=== PATIENT | male | born 1995 | race Caucasian/White ===

== ENCOUNTER 2017-02-01 13:06 | Emergency (ER) | payer OTHER ==
[~2017-02-01] VITALS: Ht 177.8 cm; Wt 83.0 kg
[~2017-02-01 13:06] MED LIST: MOTR200T4 PO
[2017-02-01 13:11] VITALS: BP 148/102; PULSE 98; RESP 16; TEMP 98.1; O2SAT 100
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
[2017-02-01] MEDS ORDERED: IBUP-232 PO (15:05)
[2017-02-01] MEDS ORDERED: ORPH100T99 PO (15:05)
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
== END 2017-02-01 15:35 | disposition home or self-care (01) ==
LOC: PHEFT 13:06
DX: S62.312A Displaced fracture of base of third metacarpal bone, right hand, initial encounter for closed fracture (principal); S40.012A Contusion of left shoulder, initial encounter; M25.531 Pain in right wrist; R07.81 Pleurodynia; V29.9XXA Motorcycle rider (driver) (passenger) injured in unspecified traffic accident, initial encounter
CPT/HCPCS: 29125; 71101; 72125; 73030; 73110

== ENCOUNTER 2017-04-18 18:03 | Emergency (ER) | payer OTHER ==
[~2017-04-18] VITALS: Ht 177.8 cm; Wt 84.3 kg
[~2017-04-18 18:03] MED LIST changes: +IBUP-232 PO; -MOTR200T4 PO; +ORPH100T99 PO
[2017-04-18 18:05] VITALS: BP 125/84; PULSE 79; RESP 18; TEMP 98.4; O2SAT 100
[2017-04-18] MEDS ORDERED: BACT800T5 PO (18:56)
[2017-04-18] MEDS ORDERED: HYDR-3533 PO (18:56)
[2017-04-18] MEDS ORDERED: LIDOCAINE 1%/EPINEPHrine 1:100,000 SOLN 30 ML VIAL ONE (18:57)
[2017-04-18] MEDS ORDERED: LIDOCAINE 1%/EPINEPHrine 1:100,000 SOLN 20 ML VIAL INFIL ONE ×2 (19:00→20:00)
--- NOTE | 2017-04-18 19:02 | PD ---
HPI Chief Complaint: Skin Problem Time Seen by Provider: 18:57 Travel History International Travel<30 days: No Contact w/Intl Traveler<30days: No Traveled to known affect area: No History of Present Illness HPI 22-year-old male that presents to the ED for evaluation of abscess to the buttocks. Patient has had this before. Per patient he had to have it incised before. Per patient his been bothering him for about 2 weeks now. Per patient is not really draining. Per patient's painful to sit. He denies any injuries or trauma. Denies any fevers chills or sweats. Per patient pain is 8 out of 10 especially when he sits on it. He has no allergies to medication. Denies any fevers chills or sweats. PFSH Past Medical History Medical History: Denies Significant Hx Diminished Hearing: No Influenza Vaccination: No Past Surgical History Tonsillectomy: Yes Social History Alcohol Use: Yes (COUPLE TIMES A WEEK) Tobacco Use: No Substance Use: No Allergies-Medications (Allergen,Severity, Reaction): Coded Allergies: No Known Allergies (Unverified , 04/18/17) Reported Meds & Prescriptions Reported Meds & Active Scripts Active Lortab (Hydrocodone-Acetaminophen) 5-325 Mg Tab 1 Tab PO Q6H PRN Bactrim DS (Sulfamethoxazole-Trimethoprim) 800-160 Mg Tab 1 Tab PO BID 10 Days Review of Systems Except as stated in HPI: all other systems reviewed are Neg Physical Exam Narrative GENERAL: SKIN: Warm and dry. Patient has a 1 cm in diameter pilonydal cyst on the gluteal cleft. No sign of other deformity. Mobile and tender. Erythematous but no drainage. Patient does have a scar from previous drainage in that same area. HEAD: Atraumatic. Normocephalic. EYES: Pupils equal and round. No scleral icterus. No injection or drainage. ENT: No nasal bleeding or discharge. Mucous membranes pink and moist. Tongue is midline. No uvula deviation. NECK: Trachea midline. No JVD. CARDIOVASCULAR: Regular rate and rhythm. RESPIRATORY: No accessory muscle use. Clear to auscultation. Breath sounds equal bilaterally. GASTROINTESTINAL: Abdomen soft, non-tender, nondistended. Hepatic and splenic margins not palpable. MUSCULOSKELETAL: Extremities without clubbing, cyanosis, or edema. No obvious deformities. Full range of motion of the upper and lower extremities bilaterally. 2+ pulses bilaterally. NEUROLOGICAL: Awake and alert. No obvious cranial nerve deficits. Motor grossly within normal limits. Five out of 5 muscle strength in the arms and legs. Normal speech. PSYCHIATRIC: Appropriate mood and affect; insight and judgment normal. Data Data Last Documented VS Vital Signs Date Time Temp Pulse Resp B/P Pulse Ox O2 Delivery O2 Flow Rate FiO2 04/18/17 18:05 98.4 79 18 125/84 100 Orders Wound Culture And Gram Stain (04/18/17 18:54) Wound Care (04/18/17 18:54) Lidocai-Epi 1%-1:100,000 Inj (Xylocaine- (04/18/17 19:00) MDM Medical Decision Making Medical Screen Exam Complete: Yes Emergency Medical Condition: Yes Medical Record Reviewed: Yes Differential Diagnosis Pilonidal cyst versus abscess versus normal exam Narrative Course 22-year-old male that presents to the ED for evaluation of altered mental status. Patient was properly examined and was found to have signs and symptoms consistent with bilateral cysts. After explained procedure to the patient and she agreed to it abscesses was incessant during his stay in procedure note. Patient was given prescription for Bactrim and Lortab for pain. Patient was told to apply warm compresses. I strongly encouraged the patient to follow with a general surgeon to get the cyst removed so he doesn't have this again at this is his second time with the same complaint. He agrees understanding of this plan. Follow with PCP. See ED worsening symptoms. Procedures Procedure Narrative After the risks and benefits were discussed the following procedure was performed: INCISION AND DRAINAGE OF ABSCESS: The area was prepped and was sterilely draped. A subcutaneous wheal of 1 % Xylocaine with a total number 5 mL was used to anesthetize the area. The area was properly anesthetized. A number 11 scalpel was used to make a 0.5 -cm incision across the area of the abscess. Cultures were obtained. The abscess was drained an irrigated with normal saline. Quarter inch iodoform packing was placed in the wound. Sterile dressing applied. Patient advised to have packing removed in two days. Diagnosis Primary Impression: Pilonidal cyst with abscess Patient Instructions: General Instructions Additional Instructions: Take medications as prescribed. Follow-up with PCP and general surgeon to get the cyst removed to prevent this from ever happening again. See ED for any worsening symptoms. Do not drink or drive while taking pain medication. Apply ice or heat as needed for pain Change dressings daily. Med/Other Pt SpecificInfo: Prescription(s) given Scripts Hydrocodone-Acetaminophen (Lortab)5-325 Mg Tab1 Tab PO Q6H PRN (PAIN) #12 TAB Prov:Genoveva Nichols MD 04/18/17 Sulfamethoxazole-Trimethoprim (Bactrim DS)800-160 Mg Tab1 Tab PO BID 10 Days Prov:Genoveva Nichols MD 04/18/17 Disposition: 01 DISCHARGE HOME Condition: Stable Real Monge Apr 18, 2017 19:02
== END 2017-04-18 19:58 | disposition home or self-care (01) ==
LOC: PHED 18:03 → PHEFT 19:58
DX: L05.01 Pilonidal cyst with abscess (principal)
CPT/HCPCS: 10061; 87070; 87205

== ENCOUNTER 2017-05-18 10:08 | Emergency (ER) | payer OTHER ==
[~2017-05-18] VITALS: Ht 177.8 cm; Wt 80.0 kg
[~2017-05-18 10:08] MED LIST changes: +BACT800T5 PO; +HYDR-3533 PO; -IBUP-232 PO; -ORPH100T99 PO
[2017-05-18 10:09] VITALS: BP 143/92; PULSE 73; RESP 18; TEMP 98.5; O2SAT 100
[2017-05-18] MEDS ORDERED: LIDOCAINE 1%/EPINEPHrine 1:100,000 SOLN 50 ML VIAL INFIL ONE (10:30)
[2017-05-18] MEDS ORDERED: TETANUS/DIPHTHERIA TOXOID ADULT 0.5 ML VIAL IM ONE (10:30)
--- NOTE | 2017-05-18 10:50 | PD ---
HPI Chief Complaint: Laceration/Skin Injury Time Seen by Provider: 10:30 Travel History International Travel<30 days: No Contact w/Intl Traveler<30days: No Traveled to known affect area: No History of Present Illness HPI 22-year-old male presents the emergency department with laceration to the distal left index finger while working. 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 He has numbness distally to the injury. Bleeding is controlled with pressure dressing. He is unsure of his last tetanus shot. He is able to bend the distal left DIP joint of the index finger. He has no other injury. Pain is 7 out of 10. He has no known drug allergies. PFSH Past Medical History Diminished Hearing: No Medical other: Yes (hypocalemia, hyponatremia) Tetanus Vaccination: > 5 Years Influenza Vaccination: No ?: Not Past Surgical History Tonsillectomy: Yes Social History Alcohol Use: Yes (COUPLE TIMES A WEEK) Tobacco Use: Yes (dip) Substance Use: No Allergies-Medications (Allergen,Severity, Reaction): Coded Allergies: No Known Allergies (Unverified , 05/18/17) Reported Meds & Prescriptions Reported Meds & Active Scripts Active No Active Prescriptions or Reported Medications Review of Systems Except as stated in HPI: all other systems reviewed are Neg General / Constitutional: No: Fever Eyes: No: Visual changes HENT: No: Headaches Cardiovascular: No: Chest Pain or Discomfort Respiratory: No: Shortness of Breath Gastrointestinal: No: Abdominal Pain Genitourinary: No: Dysuria Musculoskeletal: No: Pain Skin: No Rash Neurologic: No: Weakness Psychiatric: No: Depression Endocrine: No: Polydipsia Hematologic/Lymphatic: No: Easy Bruising Physical Exam Narrative GENERAL: Patient appears in mild distress. SKIN: Warm and dry. Normal color. Normal turgor. Patient has a 2 cm linear laceration to the distal left palmar surface of the index finger. HEAD: Atraumatic. Normocephalic. EYES: Pupils equal and round. No scleral icterus. No injection or drainage. ENT: No nasal bleeding or discharge. Mucous membranes pink and moist. Pharynx is clear. Airway patent. NECK: Trachea midline. Supple. CARDIOVASCULAR: Regular rate and rhythm. RESPIRATORY: No accessory muscle use. MUSCULOSKELETAL: Extremities without clubbing, cyanosis, or edema. No obvious deformities. Range of motion is full, with no loss of function. NEUROLOGICAL: Awake and alert. No obvious cranial nerve deficits. Motor grossly within normal limits. Five out of 5 muscle strength in the arms and legs. Normal speech. PSYCHIATRIC: Appropriate mood and affect; insight and judgment normal. Data Data Last Documented VS Vital Signs Date Time Temp Pulse Resp B/P Pulse Ox O2 Delivery O2 Flow Rate FiO2 05/18/17 10:09 98.5 73 18 143/92 100 Room Air Orders Tetanus/Diphtheria Tox Adult (Tetanus/Di (05/18/17 10:30) Lidocai-Epi 1%-1:100,000 Inj (Xylocaine- (05/18/17 10:30) MDM Medical Decision Making Medical Screen Exam Complete: Yes Emergency Medical Condition: Yes Differential Diagnosis Left finger laceration. Need for tetanus. Need for sutures. Narrative Course Patient is medically stable at time of exam. Digital block of 1% lidocaine with epi was placed in the left index finger with good anesthetic effect Laceration was repaired. Sterile dressing is placed. Wound instructions are reviewed with the patient. Patient take Tylenol and ibuprofen as needed. Tetanus is given IM. Sutures to be removed in 7 days. Follow-up sooner as needed. Procedures Procedure Narrative LACERATION LOCATION: Left distal index finger LENGTH: 2 cm NUMBER OF STITCHES/LILIANE: 5 simple interrupted REPAIR: The area of the laceration was prepped with Betadine and sterilely draped. Digital block consisting of 2.5 mg 1% lidocaine with epi was placed with good anesthetic effect.. The wound was copiously irrigated and explored without evidence of foreign body, tendon injury or neurovascular injury. The wound was closed using 5-0 Ethilon. This was a single layer repair. A sterile dressing was applied. The patient was advised to keep the dressing clean and dry. Patient tolerated the procedure well. Diagnosis Primary Impression: Laceration of left index finger Qualified Code: S61.211A - Laceration of left index finger without foreign body without damage to nail, initial encounter Referrals: Aravind Barber MD as needed Patient Instructions: Finger Laceration (ED), General Instructions Additional Instructions: Laceration was repaired. Sterile dressing is placed. Wound instructions are reviewed with the patient. Patient take Tylenol and ibuprofen as needed. Tetanus is given IM. Sutures to be removed in 7 days. Follow-up sooner as needed. Med/Other Pt SpecificInfo: No Meds Exist/No RX given Scripts No Active Prescriptions or Reported Meds Disposition: 01 DISCHARGE HOME Condition: Smith Varma May 18, 2017 10:50
== END 2017-05-18 11:10 | disposition home or self-care (01) ==
LOC: NEPK 10:08
DX: S61.211A Laceration without foreign body of left index finger without damage to nail, initial encounter (principal); W25.XXXA Contact with sharp glass, initial encounter; Y99.0 Civilian activity done for income or pay; Z23 Encounter for immunization; F17.220 Nicotine dependence, chewing tobacco, uncomplicated
CPT/HCPCS: 12001; 90471; 90714

== ENCOUNTER 2017-09-20 17:54 | Emergency (ER) | payer OTHER ==
[~2017-09-20] VITALS: Ht 177.8 cm; Wt 80.1 kg
[~2017-09-20 17:54] MED LIST changes: -BACT800T5 PO; +CETI10 PO; -HYDR-3533 PO; +MEDR4PAK PO
[2017-09-20 18:01] VITALS: BP 147/55; PULSE 89; RESP 16; TEMP 98.5; O2SAT 100
--- NOTE | 2017-09-20 20:00 | PD ---
HPI Chief Complaint: Skin Problem Time Seen by Provider: 19:43 Travel History International Travel<30 days: No Contact w/Intl Traveler<30days: No History of Present Illness HPI 22-year-old right-hand dominant male presents to the ED for evaluation of pain of the left index finger times one week. Patient states that he has a wound in the area but is unsure how he acquired it. Pain is rated 2/10. No alleviating or exacerbating factors reported. Patient denies numbness, tingling, weakness, limitation to range of motion of joints of the hand or wrist. He states his last tetanus immunization was "a few months ago.". He states that at that time he had a laceration to the distal tip of the same finger. At that time he had sutures placed but did not take antibiotics. PFSH Past Medical History Diminished Hearing: No Influenza Vaccination: No ?: Not Past Surgical History Tonsillectomy: Yes (T and A) Social History Alcohol Use: Yes (nightly at dinner) Tobacco Use: Yes (dip) Substance Use: No Allergies-Medications (Allergen,Severity, Reaction): Coded Allergies: No Known Allergies (Unverified , 05/18/17) Reported Meds & Prescriptions Reported Meds & Active Scripts Active Bactrim DS (Sulfamethoxazole-Trimethoprim) 800-160 Mg Tab 1 Tab PO BID Bactroban Topical (Mupirocin) 22 Gm Cream 1 Applic TOPICAL BID 10 Days Cetirizine (Cetirizine HCl) 10 Mg Tab 10 Mg PO DAILY 14 Days Medrol Dosepak (Methylprednisolone) 4 Mg Dspk 4 Mg PO DIRECTED Per Pharmacist direction Review of Systems Except as stated in HPI: all other systems reviewed are Neg Physical Exam Narrative GENERAL: Well-nourished, well-developed white male in no acute distress. Sitting up on the stretcher, wearing his sunglasses. SKIN: Focused skin assessment warm/dry. HEAD: Normocephalic. EYES: No scleral icterus. No injection or drainage. NECK: Supple, trachea midline. No JVD or lymphadenopathy. CARDIOVASCULAR: Regular rate and rhythm without murmurs, gallops, or rubs. RESPIRATORY: Breath sounds equal bilaterally. No accessory muscle use. GASTROINTESTINAL: Abdomen soft, non-tender, nondistended. MUSCULOSKELETAL: No cyanosis, or edema. FOCUSED LEFT UPPER EXTREMITY EXAM: 2+ radial pulse. There is a 1 cm superficial laceration on the dorsal aspect of the PIP joint of the left index finger. Mildly tender to palpation. Patient is able to flex and extend the digit without difficulties. Patient has a strong slide attendant strength and is able to flex and extend the wrist with no difficulties. Sensation intact distally. Cap refill less than 2 seconds. BACK: Nontender without obvious deformity. No CVA tenderness. Data Data Last Documented VS Vital Signs Date Time Temp Pulse Resp B/P (MAP) Pulse Ox O2 Delivery O2 Flow Rate FiO2 09/20/17 21:01 09/20/17 18:01 98.5 89 16 100 Room Air Orders Orders Hand, Limited (2vws) (09/20/17 19:42) Ed Discharge Order (09/20/17 20:41) [facility] Medical Decision Making Medical Screen Exam Complete: Yes Emergency Medical Condition: Yes Differential Diagnosis Laceration versus cellulitis versus osteomyelitis versus other Narrative Course 22-year-old right-hand dominant male presents to the ED for evaluation of pain of the left index finger times one week. Patient states that he has a wound in the area but is unsure how he acquired it. Pain is rated 2/10. No alleviating or exacerbating factors reported. Patient denies numbness, tingling, weakness, limitation to range of motion of joints of the hand or wrist. He states his last tetanus immunization was "a few months ago.". He states that at that time he had a laceration to the distal tip of the same finger. At that time he had sutures placed but did not take antibiotics. Vitals reviewed. On exam the patient has a small laceration over the PIP joint of the left index finger. There is some tenderness and localized erythema but is otherwise unremarkable. X-ray reveals no evidence of osteomyelitis. Patient's prescribed Bactroban ointment and Bactrim twice a day. He is instructed to monitor for worsening signs, return to the ED should they occur. He indicated understanding of the instructions. He is stable and discharged home. Diagnosis Primary Impression: Cellulitis of left index finger Referrals: Renee Espino MD Patient Instructions: Cellulitis (ED), General Instructions Additional Instructions: Apply Bactroban ointment twice a day as prescribed. Take antibiotics as prescribed every pill is gone. Keep the wound clean, dry and covered. Follow-up with the hand surgeon, Dr. Espino. Return to the ED for worsening symptoms or any urgent or emergent medical condition. Med/Other Pt SpecificInfo: Prescription(s) given Scripts Sulfamethoxazole-Trimethoprim (Bactrim DS) 800-160 Mg Tab 1 TAB PO BID for Infection, #14 TAB 0 Refills Prov: Sloan Patel MD 09/20/17 Mupirocin Topical (Bactroban Topical) 22 Gm Cream 1 APPLIC TOPICAL BID for Mgmt Bacterial Infection for 10 Days, #1 TUBE 0 Refills Prov: Sloan Patel MD 09/20/17 Disposition: 01 DISCHARGE HOME Condition: Stable Lulu Trejo Sep 20, 2017 20:00
[2017-09-20] MEDS ORDERED: BACT800T5 PO (20:40)
[2017-09-20] MEDS ORDERED: MUPI2%T TOPICAL (20:40)
--- NOTE | 2017-09-20 21:17 | RADRPT ---
EXAM DATE/TIME: 09/20/2017 20:04 [facility] COMPARISON: No previous studies available for comparison. INDICATIONS : Laceration to PIP joint on left 2nd digit 2 weeks ago. MEDICAL HISTORY : None. SURGICAL HISTORY : None. ENCOUNTER: Initial ACUITY: 2 weeks PAIN SCORE: 4/10 LOCATION: Left hand, 2nd digit FINDINGS: Two view examination of the left hand demonstrates no soft tissue swelling, dislocation, or fracture. The joint spaces are maintained. Bony mineralization is normal. No radiopaque foreign bodies. CONCLUSION: Osseous structures of the hand are grossly intact. Manny Rodriguez MD on September 20, 2017 at 21:14 Board Certified Radiologist. This report was verified electronically.
== END 2017-09-20 21:02 | disposition home or self-care (01) ==
LOC: PHED 17:54 → PHEFT 21:02
DX: L03.012 Cellulitis of left finger (principal); Z72.0 Tobacco use
CPT/HCPCS: 73120; 99284

== ENCOUNTER 2017-10-06 09:56 | Emergency (ER) | payer OTHER ==
[~2017-10-06] VITALS: Ht 177.8 cm; Wt 83.7 kg
[~2017-10-06 09:56] MED LIST changes: +BACT800T5 PO; +MUPI2%T TOPICAL
[2017-10-06 09:57] VITALS: BP 134/90; PULSE 61; RESP 18; TEMP 97.9; O2SAT 98
--- NOTE | 2017-10-06 10:29 | PD ---
HPI Chief Complaint: Cold / Flu Symptoms Time Seen by Provider: 10:21 Travel History International Travel<30 days: No Contact w/Intl Traveler<30days: No Traveled to known affect area: No History of Present Illness HPI 22-year-old male here with nasal congestion, sore throat 7 days. Symptom severity is mild. No aggravating or alleviating factors. No sick contacts. No foreign travel. He denies fever, chills, headache, neck pain ,chest pain, shortness breath. PFSH Past Medical History Medical History: Denies Significant Hx Diminished Hearing: No Past Surgical History Tonsillectomy: Yes (T and A) Social History Alcohol Use: Yes (nightly at dinner) Tobacco Use: Yes (dip) Substance Use: No Allergies-Medications (Allergen,Severity, Reaction): Coded Allergies: No Known Allergies (Unverified Adverse Reaction, Unknown, 10/06/17) Reported Meds & Prescriptions Reported Meds & Active Scripts Active No Active Prescriptions or Reported Medications Review of Systems Except as stated in HPI: all other systems reviewed are Neg General / Constitutional: No: Fever Eyes: No: Visual changes HENT: Positive: Sore Throat, Congestion Cardiovascular: No: Chest Pain or Discomfort Respiratory: No: Shortness of Breath Gastrointestinal: No: Abdominal Pain Genitourinary: No: Dysuria Physical Exam Narrative GENERAL: Alert male. Well-appearing SKIN: Warm and dry. No rash. HEAD: Atraumatic. Normocephalic. EYES: Pupils equal and round. No injection or drainage. ENT: No nasal bleeding or discharge. Mucous membranes pink and moist. Mild pharyngeal erythema. No tonsillar hypertrophy or exudate. Uvula is midline. Airway is patent. NECK: Trachea midline. No lymphadenopathy. No nuchal rigidity. CARDIOVASCULAR: Regular rate and rhythm. RESPIRATORY: No accessory muscle use. Clear to auscultation. Breath sounds equal bilaterally. GASTROINTESTINAL: Abdomen soft, non-tender, nondistended. Data Data Last Documented VS Vital Signs Date Time Temp Pulse Resp B/P (MAP) Pulse Ox O2 Delivery O2 Flow Rate FiO2 10/06/17 09:57 97.9 61 18 134/90 (105) 98 Orders Orders Ed Discharge Order (10/06/17 10:29) MDM Medical Decision Making Medical Screen Exam Complete: Yes Emergency Medical Condition: Yes Differential Diagnosis URI, strep pharyngitis, influenza Narrative Course 22-year-old male here with mild URI-like symptoms 7 days. He is well- appearing. Vital signs are stable. Symptomatically treatment discussed with patient. Diagnosis Primary Impression: URI (upper respiratory infection) Qualified Codes: J06.9 - Acute upper respiratory infection, unspecified; B97.89 - Other viral agents as the cause of diseases classified elsewhere Referrals: Primary Care Physician Scripts No Active Prescriptions or Reported Meds Disposition: 01 DISCHARGE HOME Condition: Stable Neena Castañeda Oct 06, 2017 10:29
== END 2017-10-06 10:41 | disposition home or self-care (01) ==
LOC: PHEFT 09:56
DX: J06.9 Acute upper respiratory infection, unspecified (principal); F17.220 Nicotine dependence, chewing tobacco, uncomplicated
CPT/HCPCS: 99281

== ENCOUNTER 2018-01-12 10:19 | Emergency (ER) | payer OTHER ==
[~2018-01-12] VITALS: Ht 177.8 cm; Wt 79.0 kg
[2018-01-12 10:21] VITALS: BP 132/82; PULSE 57; RESP 16; TEMP 98.1; O2SAT 99
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
== END 2018-01-12 11:56 | disposition home or self-care (01) ==
LOC: PHEFT 10:19
DX: S20.212A Contusion of left front wall of thorax, initial encounter (principal); S90.32XA Contusion of left foot, initial encounter; V43.52XA Car driver injured in collision with other type car in traffic accident, initial encounter
CPT/HCPCS: 71046; 73630; 99284

== ENCOUNTER 2018-01-14 16:44 | Emergency (ER) | payer OTHER ==
[~2018-01-14] VITALS: Ht 177.8 cm; Wt 82.3 kg
[2018-01-14 16:50] VITALS: BP 125/78; PULSE 64; RESP 18; TEMP 98.3; O2SAT 98
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
== END 2018-01-14 17:37 | disposition home or self-care (01) ==
LOC: PHEFT 16:44
DX: Z04.1 Encounter for examination and observation following transport accident (principal); M54.89 Other dorsalgia
CPT/HCPCS: 99282

== ENCOUNTER 2018-01-27 18:23 | Emergency (ER) | payer OTHER ==
[2018-01-27 18:53] VITALS: BP_SYST 159; PULSE 90; RESP 20; TEMP 97.6; O2SAT 96
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
== END 2018-01-27 21:31 | disposition home or self-care (01) ==
LOC: PHEFT 18:23
DX: M79.672 Pain in left foot (principal)
CPT/HCPCS: 73630; 99283